=== PATIENT | female | born 1980 | race Caucasian/White ===

== ENCOUNTER 2021-09-21 16:25 | Outpatient (CLI) | payer OTHER, SELFPAY ==
--- NOTE | 2021-09-21 16:35 | CRLHL7_ITS ---
For Patients: As a result of the Cures Act, medical imaging exams and procedure reports are released immediately into your electronic medical record. You may view this report before your referring provider. If you have questions, please contact your health care provider. BILATERAL DIGITAL SCREENING MAMMOGRAM WITH TOMOSYNTHESIS AND COMPUTER-AIDED DETECTION CLINICAL HISTORY: Routine screening exam. COMPARISON: None. TECHNIQUE: Digital mammogram in CC and MLO projections including computer-aided detection (CAD). Tomosynthesis utilized. BREAST COMPOSITION: There are areas of scattered fibroglandular density. FINDINGS: RIGHT Breast: No suspicious findings. LEFT Breast: Asymmetric density upper outer quadrant 6 cm from the nipple. IMPRESSION: LEFT breast asymmetry/mass. RECOMMENDATIONS: Additional mammographic views of the LEFT breast including 3D spot compression CC/MLO. LEFT breast ultrasound may also be required. [facility] will contact the patient for follow-up. BI-RADS Category 0: Incomplete: Need Additional Imaging Evaluation and/or Prior Mammograms for Comparison A lay language report of this examination will be provided to the patient. Dictated by Clem Cote MD @ 09/22/2021 9:28:29 AM jj/Dictated by: Clem Cote MD @ 09/22/2021 9:28:00 AM (Electronically Signed)
== END 2021-09-21 16:26 | disposition home or self-care (01) ==
LOC: MAMMO 16:26
PROVIDERS: PCP Physician Assistant Medical; Visit Provider Physician Assistant Medical
DX: Z12.31 Encounter for screening mammogram for malignant neoplasm of breast (principal); N63.20 Unspecified lump in the left breast, unspecified quadrant
CPT/HCPCS: 77063; 77067

== ENCOUNTER 2021-09-27 08:35 | Outpatient (CLI) | payer OTHER, SELFPAY ==
--- NOTE | 2021-09-27 08:45 | CRLHL7_ITS ---
For Patients: As a result of the Cures Act, medical imaging exams and procedure reports are released immediately into your electronic medical record. You may view this report before your referring provider. If you have questions, please contact your health care provider. DIGITAL DIAGNOSTIC LEFT MAMMOGRAM USING TOMOSYNTHESIS AND COMPUTER-AIDED DETECTION LEFT BREAST ULTRASOUND CLINICAL HISTORY: LEFT breast mass/asymmetry. COMPARISON: 09/21/2021. TECHNIQUE: Digital LEFT mammogram in two projections. Tomosynthesis and CAD were utilized. Real-time ultrasound imaging of LEFT breast with imaging documentation. BREAST COMPOSITION: There are areas of scattered fibroglandular density. FINDINGS: 3D spot compression CC/MLO LEFT breast mammograms. Decreased conspicuity of the asymmetric density within the upper outer quadrant of the LEFT breast. No architectural distortion. Targeted sonogram LEFT breast 1 o`clock 6 cm from the nipple performed. An island of normal fibroglandular tissue is present at anterior depth. No suspicious masses. No fibrocystic change. IMPRESSION: Normal fibroglandular tissue LEFT breast. No evidence of malignancy. RECOMMENDATIONS: Annual BILATERAL screening mammography. BI-RADS Category 2: Benign Results and recommendations discussed with the patient. A lay language report of this examination will be provided to the patient. Dictated by Clem Cote MD @ 09/27/2021 1:29:35 PM jj/Dictated by: Clem Cote MD @ 09/27/2021 1:29:00 PM (Electronically Signed)
--- NOTE | 2021-09-27 09:15 | CRLHL7_ITS ---
For Patients: As a result of the Cures Act, medical imaging exams and procedure reports are released immediately into your electronic medical record. You may view this report before your referring provider. If you have questions, please contact your health care provider. PLEASE SEE DIGITAL DIAGNOSTIC LEFT MAMMOGRAM PERFORMED SAME DAY CRL:[email or web address] [email or web address]/Dictated by: Clem Cote MD @ 09/27/2021 1:29:00 PM (Electronically Signed)
== END 2021-09-27 08:36 | disposition home or self-care (01) ==
LOC: MAMMO 08:36
PROVIDERS: PCP Physician Assistant Medical; Visit Provider Physician Assistant Medical
DX: N63.20 Unspecified lump in the left breast, unspecified quadrant; R92.8 Other abnormal and inconclusive findings on diagnostic imaging of breast
CPT/HCPCS: 76642; 77065; G0279

== ENCOUNTER 2022-11-03 16:00 | Outpatient (CLI) | payer OTHER, SELFPAY | END 2022-11-03 16:01 | disposition home or self-care (01) | LOC: NFLDREF 11-04 05:11 | PROVIDERS: PCP Physician Assistant Medical; Referring Provider Physician Assistant Medical; Visit Provider Physician Assistant Medical | DX: Z34.90 Encounter for supervision of normal pregnancy, unspecified, unspecified trimester (principal) | CPT/HCPCS: 87086 ==

== ENCOUNTER 2022-12-16 12:57 | Outpatient (CLI) | payer OTHER, SELFPAY | END 2022-12-16 12:58 | disposition home or self-care (01) | LOC: RAD 12:58 | PROVIDERS: PCP Physician Assistant Medical; Visit Provider Physician Assistant Medical | DX: R01.1 Cardiac murmur, unspecified (principal) | CPT/HCPCS: 93306 ==